=== PATIENT | male | born 1990 | race American Indian/Alaskan Native ===

== ENCOUNTER 2020-06-26 23:41 | Emergency (ER) | payer SELFPAY ==
[2020-06-26] MEDS ORDERED: HALOPERIDOL LACTATE 5 MG/1 ML INJ ONE (23:55)
[2020-06-26] MEDS ORDERED: HALOPERIDOL LACTATE 5 MG/1 ML INJ IM ONE (23:56)
[2020-06-26] MEDS ORDERED: TETANUS,DIPH,PERTUSS(ACELL) VACCINE 0.5 ML SYRINGE IM ONE (23:58)
--- NOTE | 2020-06-27 00:04 | Emergency Department Report ---
HPI - General Time Seen by Provider: 06/26/20 23:52 - HPI HPI: Room 25 The patient is a 30-year-old male present with a chief complaint of fall. Per EMS the patient lives at a snf and they reportedly called after the patient fell. The circumstances surrounding the fall are not known by EMS. The patient is obviously intoxicated and admits to drinking alcohol all day. Patient is belligerent and not fully cooperative with history. When asked if he is hurting anywhere the patient acknowledges his left leg but does not answer further questions. There is a small laceration over the left eyebrow ED Past Medical Hx - Past Medical History Previous Medical History?: No - Surgical History Past Surgical History?: No - Family History Family history: no significant - Social History Substance Use Type: Alcohol - Medications Home Medications: Home Medications Medication Instructions Recorded Confirmed Last Taken Type Unobtainable 06/27/20 06/27/20 Unknown History ED Review of Systems ROS: Stated complaint: ETOH;LACERATION LT EYEBROW Other details as noted in HPI Comment: Unobtainable due to pts medical conditions (Intoxicated) Physical Exam - Physical Exam Physical Exam: GENERAL: The patient is well-developed well-nourished male lying on stretcher not appearing to be in acute distress. Patient intoxicated and verbally abusive HEENT: Normocephalic. Approximately 1 cm laceration inferior to the lateral left eyebrow. Extraocular motions are intact. Patient has moist mucous membranes. NECK: Supple. No axial step-off CHEST/LUNGS: Clear to auscultation. There is no respiratory distress noted. HEART/CARDIOVASCULAR: Regular. There is no tachycardia. There is no gallop rub or murmur. ABDOMEN: Abdomen is soft, nontender. Patient has normal bowel sounds. There is no abdominal distention. SKIN: There is no rash. There is no edema. There is no diaphoresis. NEURO: The patient is awake but intoxicated. The patient is not fully cooperative with neurologic exam. The patient moves all extremities. The patient has normal speech MUSCULOSKELETAL: There is no tenderness or deformity of the left lower extremity. - Laceration /Wound Repair Left Face Wound Location: face Wound Length (cm): 1 Wound's Depth, Shape: linear Wound Explored: clean Irrigated w/ Saline (ccs): 100 Betadine Prep?: No Wound Repaired With: Dermabond Sterile Dressing Applied?: No ED Medical Decision Making - Lab Data Result diagrams: 06/27/20 00:52 06/27/20 00:52 Laboratory Tests 06/27/20 06/27/20 06/27/20 00:52 00:52 00:52 WBC 8.2 RBC 5.91 H Hgb 16.0 H Hct 47.1 H MCV 80 L MCH 27 L MCHC 34 RDW 13.4 Plt Count 231 Lymph % (Auto) 23.1 [place] % (Auto) 3.9 Eos % (Auto) 1.3 Baso % (Auto) 0.6 Lymph # (Auto) 1.9 [place] # (Auto) 0.3 Eos # (Auto) 0.1 Baso # (Auto) 0.0 Seg Neutrophils % 71.1 H Seg Neutrophils # 5.8 Sodium 140 Potassium 3.3 L Chloride 100.6 Carbon Dioxide 24 Anion Gap 19 BUN 8 L Creatinine 1.0 Estimated GFR > 60 BUN/Creatinine Ratio 8 Glucose 150 H Calcium 8.9 Urine Opiates Screen Urine Methadone Screen Ur Barbiturates Screen Ur Phencyclidine Scrn Ur Amphetamines Screen U Benzodiazepines Scrn Urine Cocaine Screen U Marijuana (THC) Screen Drugs of Abuse Note Plasma/Serum Alcohol 0.40 H 06/27/20 02:29 WBC RBC Hgb Hct MCV MCH MCHC RDW Plt Count Lymph % (Auto) [place] % (Auto) Eos % (Auto) Baso % (Auto) Lymph # (Auto) [place] # (Auto) Eos # (Auto) Baso # (Auto) Seg Neutrophils % Seg Neutrophils # Sodium Potassium Chloride Carbon Dioxide Anion Gap BUN Creatinine Estimated GFR BUN/Creatinine Ratio Glucose Calcium Urine Opiates Screen Presumptive negative Urine Methadone Screen Presumptive negative Ur Barbiturates Screen Presumptive negative Ur Phencyclidine Scrn Presumptive negative Ur Amphetamines Screen Presumptive negative U Benzodiazepines Scrn Presumptive negative Urine Cocaine Screen Presumptive negative U Marijuana (THC) Screen Presumptive negative Drugs of Abuse Note Disclamer Plasma/Serum Alcohol - Radiology Data Radiology results: report reviewed (CT head, CT cervical spine, left femur x- ray, left tib-fib x-ray), image reviewed (CT head, CT cervical spine, left femur x-ray, left tib-fib x-ray) interpreted by me: Left femur x-ray-no acute fracture, no dislocation. Left tib-fib x-ray-no acute fracture [facility] [address] [place] [id number] Cat Scan Report Signed Patient: KOKO CORREA MR#: [id number] : 1990 Acct:[id number] Age/Sex: 30 / M ADM Date: 06/26/20 Loc: ED Attending Dr: Ordering Physician: STARLA SINGH MD Date of Service: 06/26/20 Procedure(s): CT head/brain wo con Accession Number(s): [id number] cc: STARLA SINGH MD CT HEAD WITHOUT CONTRAST INDICATION / CLINICAL INFORMATION: Fall, laceration over left eyebrow. Intoxicated. TECHNIQUE: All CT scans at this location are performed using CT dose reduction for ALARA by means of automated exposure control. COMPARISON: None available. FINDINGS: HEMORRHAGE: None. EXTRA-AXIAL SPACES: Normal in size and morphology for the patient's age. VENTRICULAR SYSTEM: Normal in size and morphology for the patient's age. CEREBRAL PARENCHYMA: No significant abnormality. No acute territorial infarct. MIDLINE SHIFT / H ERNIATION: None. CEREBELLUM / BRAINSTEM: No significant abnormality. ORBITS: Normal as visualized. SOFT TISSUES: There is a small left frontal scalp hematoma. SKULL: No significant abnormality. PARANASAL SINUSES / MASTOID AIR CELLS: There is minimal chronic mucosal thickening involving both maxillary antra. ADDITIONAL FINDINGS: None. IMPRESSION: Small left frontal scalp hematoma without skull fracture or intracranial hemorrhage. Signer Name: Ron Acosta MD Signed: 06/27/2020 12:32 AM Workstation Name: [id number] Transcribed By: RT Dictated By: Ron Acosta MD Electronically Authenticated By: Ron Acosta MD Signed Date/Time: 06/27/20 0032 DD/ 0029 TD/TT: Print Cancel [facility] [address] [place] [address] Cat Scan Report Signed Patient: KOKO CORREA MR#: [id number] : 1990 Acct:[id number] Age/Sex: 30 / M ADM Date: 06/26/20 Loc: ED Attending Dr: Ordering Physician: STARLA SINGH MD Date of Service: 06/26/20 Procedure(s): CT cervical spine wo con Accession Number(s): [id number] cc: STARLA SINGH MD CT CERVICAL SPINE WO CON INDICATION / CLINICAL INFORMATION: Fall, laceration over left eyebrow. Intoxicated. Trauma with neck pain. TECHNIQUE: All CT scans at this location are performed using CT dose reduction for ALARA by means of automated exposure control. COMPARISON: None available. FINDINGS: There is mild to moderate degenerative disc disease from C4-5 through C6-C7. There is no e vidence of fracture or subluxation. I see no evidence of a focal disc herniation or epidural hematoma. The prevertebral soft tissues are normal. The lung apices are clear. IMPRESSION: Spondylosis without acute abnormality. Signer Name: Ron Acosta MD Signed: 06/27/2020 12:34 AM Workstation Name: [id number] Transcribed By: RT Dictated By: Ron Acosta MD Electronically Authenticated By: Ron Acosta MD Signed Date/Time: 06/27/2033 DD/ TD/TT: Print [employer] [address] [address] X Ray Report Signed Patient: KOKO CORREA MR#: [id number] : 1990 Acct:[id number] Age/Sex: 30 / M ADM Date: 06/26/20 Loc: ED Attending Dr: Ordering Physician: STARLA SINGH MD Date of Service: 06/27/20 Procedure(s): XR femur 2+V LT Accession Number(s): [id number] cc: STARLA SINGH MD Fluoro Time In Minutes: LEFT FEMUR 2 VIEWS INDICATION / CLINICAL INFORMATION: Fall with left leg pain. COMPARISON: None available. FINDINGS: BONES / JOINT(S): No acute fracture or subluxation. No significant arthritis. SOFT TISSUES: No significant abnormality. ADDITIONAL FINDINGS: None. IMPRESSION: No acute abnormality. Signer Name: Ron Acosta MD Signed: 06/27/2020 12:54 AM Workstation Name: [id number] Transcribed By: RT Dictated By: Ron Acosta MD Electronically Authenticated By: Ron Acosta MD Signed Date/Time: 06/27/2053 DD/ TD/TT: Print [employer] [address] [place] [address] XRay Report Signed Patient: KOKO CORREA MR#: [id number] : 1990 Acct:[id number] Age/Sex: 30 / M ADM Date: 06/26/20 Loc: ED Attending Dr: Ordering Physician: STARLA SINGH MD Date of Service: 06/27/20 Procedure(s): XR tibia fibula 2V LT Accession Number(s): [id number] cc: STARLA SINGH MD Fluoro Time In Minutes: LEFT LOWER LEG 2 VIEWS INDICATION / CLINICAL INFORMATION: Fall with left lower leg pain. COMPARISON: None available. FINDINGS: BONES / JOINT(S): No acute fracture or subluxation. No significant arthritis. SOFT TISSUES: No significant abnormality. ADDITIONAL FINDINGS: None. IMPRESSION: No acute abnormality. Signer Name: Ron Acosta MD Signed: 06/27/2020 12:55 AM Workstation Name: [id number] Transcribed By: RT Dictated By: Ron Acosta MD Electronically Authenticated By: Ron Acosta MD Signed Date/Time: 06/27/2054 DD/ TD/TT: Print Cancel - Differential Diagnosis Close head injury, facial laceration, ICH, cervical fracture, leg contusion Critical care attestation.: If time is entered above; I have spent that time in minutes in the direct care of this critically ill patient, excluding procedure time. ED Disposition Clinical Impression: Closed head injury, Alcohol intoxication, Facial laceration Disposition: DC-01 TO HOME OR SELFCARE Is pt being admited?: No Does the pt Need Aspirin: No Condition: Stable Instructions: Laceration Care, Adult, Sutures, [place], or Adhesive Wound Closure, [id number], Head Injury, Adult, [id number] Additional Instructions: Return to the emergency department should you develop worsening symptoms, inability to tolerate food or liquids, high fever or any other concerns Referrals: PRIMARY CARE, [Primary Care Provider] - 3-5 Days
--- NOTE | 2020-06-27 00:36 | Cat Scan Report ---
CT HEAD WITHOUT CONTRAST INDICATION / CLINICAL INFORMATION: Fall, laceration over left eyebrow. Intoxicated. TECHNIQUE: All CT scans at this location are performed using CT dose reduction for ALARA by means of automated exposure control. COMPARISON: None available. FINDINGS: HEMORRHAGE: None. EXTRA-AXIAL SPACES: Normal in size and morphology for the patient's age. VENTRICULAR SYSTEM: Normal in size and morphology for the patient's age. CEREBRAL PARENCHYMA: No significant abnormality. No acute territorial infarct. MIDLINE SHIFT / HERNIATION: None. CEREBELLUM / BRAINSTEM: No significant abnormality. ORBITS: Normal as visualized. SOFT TISSUES: There is a small left frontal scalp hematoma. SKULL: No significant abnormality. PARANASAL SINUSES / MASTOID AIR CELLS: There is minimal chronic mucosal thickening involving both max illary antra. ADDITIONAL FINDINGS: None. IMPRESSION: Small left frontal scalp hematoma without skull fracture or intracranial hemorrhage. Signer Name: Ron Acosta MD Signed: 06/27/2020 12:32 AM Workstation Name: [id number]
--- NOTE | 2020-06-27 00:38 | Cat Scan Report ---
CT CERVICAL SPINE WO CON INDICATION / CLINICAL INFORMATION: Fall, laceration over left eyebrow. Intoxicated. Trauma with neck pain. TECHNIQUE: All CT scans at this location are performed using CT dose reduction for ALARA by means of automated exposure control. COMPARISON: None available. FINDINGS: There is mild to moderate degenerative disc disease from C4-5 through C6-C7. There is no evidence of fracture or subluxation. I see no evidence of a focal disc herniation or epidural hematoma. The preve rtebral soft tissues are normal. The lung apices are clear. IMPRESSION: Spondylosis without acute abnormality. Signer Name: Ron Acosta MD Signed: 06/27/2020 12:34 AM Workstation Name: [id number]
--- NOTE | 2020-06-27 00:59 | XRay Report ---
LEFT LOWER LEG 2 VIEWS INDICATION / CLINICAL INFORMATION: Fall with left lower leg pain. COMPARISON: None available. FINDINGS: BONES / JOINT(S): No acute fracture or subluxation. No significant arthritis. SOFT TISSUES: No significant abnormality. ADDITIONAL FINDINGS: None. IMPRESSION: No acute abnormality. Signer Name: Ron Acosta MD Signed: 06/27/2020 12:55 AM Workstation Name: [id number]
--- NOTE | 2020-06-27 00:59 | XRay Report ---
LEFT FEMUR 2 VIEWS INDICATION / CLINICAL INFORMATION: Fall with left leg pain. COMPARISON: None available. FINDINGS: BONES / JOINT(S): No acute fracture or subluxation. No significant arthritis. SOFT TISSUES: No significant abnormality. ADDITIONAL FINDINGS: None. IMPRESSION: No acute abnormality. Signer Name: Ron Acosta MD Signed: 06/27/2020 12:54 AM Workstation Name: [id number]
[2020-06-27 01:47] LABS: BUN/Creatinine Ratio 8; Blood Urea Nitrogen 8 mg/dL (9-20); Calcium 8.9 mg/dL (8.4-10.2); Hemolysis Index 14
[2020-06-27] MEDS ORDERED: HYDROGEN PEROXIDE 118 ML SOLUTION TP ONE (01:52)
[2020-06-27] MEDS ORDERED: THIAMINE 100 MG, FOLIC ACID 1 MG, MULTIPLE VITAMIN INJ, ADULT 10 ML in SODIUM CHLORIDE ... IV ONE (02:01)
[2020-06-27] MEDS ORDERED: MAGNESIUM SULFATE 2 GM/50 ML BAG IV ONE (02:01)
[2020-06-27 02:08] LABS: Basophils % (Auto) 0.6 % (0.0-1.8); Eosinophils # (Auto) 0.1 K/mm3 (0.0-0.4); Eosinophils % (Auto) 1.3 % (0.0-4.3); Hematocrit 47.1 % (35.5-45.6); Lymphocytes # (Auto) 1.9 K/mm3 (1.2-5.4); Lymphocytes % (Auto) 23.1 % (13.4-35.0); Mean Corpuscular HGB Conc 34 % (32-34); Mean Corpuscular Volume 80 fl (84-94); Monocytes # (Auto) 0.3 K/mm3 (0.0-0.8); Monocytes % (Auto) 3.9 % (0.0-7.3); Platelet Count 231 K/mm3 (140-440); Red Blood Count 5.91 M/mm3 (3.65-5.03); Red Cell Distribution Width 13.4 % (13.2-15.2)
[2020-06-27 02:57] LABS: Amphetamine Screen,Urine PRESUMPTIVE NEGATIVE; Benzodiazepines Screen,Urine PRESUMPTIVE NEGATIVE; Cannabinoid Screen,Urine PRESUMPTIVE NEGATIVE; Cocaine Screen,Urine PRESUMPTIVE NEGATIVE; Methadone Screen,Urine PRESUMPTIVE NEGATIVE; Opiate Screen,Urine PRESUMPTIVE NEGATIVE
[2020-06-27] MEDS ORDERED: diphenhydrAMINE 50 MG/ML VIAL ONE (03:14)
[2020-06-27] MEDS ORDERED: diphenhydrAMINE 50 MG/ML VIAL IV ONE (03:30)
[2020-06-27 19:21] VITALS: BP 127/72
== END 2020-06-27 22:00 | disposition home or self-care (01) ==
LOC: ED 23:41
DX: S01.81XA Laceration without foreign body of other part of head, initial encounter (principal); S09.90XA Unspecified injury of head, initial encounter; F10.129 Alcohol abuse with intoxication, unspecified; Z79.899 Other long term (current) drug therapy; W18.30XA Fall on same level, unspecified, initial encounter; Y93.89 Activity, other specified; Y92.89 Other specified places as the place of occurrence of the external cause; Y99.8 Other external cause status
CPT/HCPCS: 12011; 36415; 70450; 72125; 73552; 73590; 80048; 80307; 85025; 90471; 90715; 96365; 96366; 96367; 96372; 96375; 99285; J1200; J1630; J3411; J3475; J7030; 80320; G0480